=== PATIENT | female | born 1945 | race African-American/Black ===

== ENCOUNTER 2025-01-20 12:05 | Emergency (ER) | payer BC ==
[~2025-01-20] VITALS: Ht 162.6 cm; Wt 65.0 kg
[2025-01-20 12:16] VITALS: BP 139/73; PULSE 66; RESP 16; TEMP 36.6; O2SAT 99
[2025-01-20] MEDS: ACETAMINOPHEN 325MG TABLET PO ONE (12:30)
[2025-01-20] MEDS ORDERED: NAPR-1494 MT (14:32)
== END 2025-01-20 15:02 | disposition home or self-care (01) ==
LOC: ER 12:05
DX: M25.551 Pain in right hip (principal); M54.2 Cervicalgia; K50.90 Crohn's disease, unspecified, without complications; Z79.1 Long term (current) use of non-steroidal anti-inflammatories (NSAID); W19.XXXA Unspecified fall, initial encounter; Y93.89 Activity, other specified; Y92.89 Other specified places as the place of occurrence of the external cause; Y99.8 Other external cause status
CPT/HCPCS: 72192; 73552; 99284